=== PATIENT | male | born 1990 | race Two or more races ===

== ENCOUNTER 2021-08-18 18:34 | Emergency (ER) | payer SELFPAY ==
[2021-08-18] MEDS ORDERED: Sodium Chloride 0.9% 10 ML Syringe FLUSH PRN (18:55)
[2021-08-18] MEDS ORDERED: Sodium Chloride 0.9% 2.5 ML Syringe FLUSH PRN (18:55)
[2021-08-18 20:00] LABS: BLOOD UREA NITROGEN,BUN 6 mg/dL (7.0-18.0); CARBON DIOXIDE,CO2 25.3 mmol/L (21.0-32.0); CHLORIDE,CL 98 mmol/L (98-107); GLUCOSE RANDOM 123 mg/dL (74-106); LIPASE 191 U/L (73-393); POTASSIUM,K 3.3 mmol/L (3.5-5.1); SODIUM,NA 134 mmol/L (136-148)
[2021-08-18 20:37] LABS: BILIRUBIN INDIRECT 2.8
== END 2021-08-18 22:38 | disposition home or self-care (01) ==
LOC: MW.ED 18:34
DX: K72.90 Hepatic failure, unspecified without coma (principal); R10.11 Right upper quadrant pain
CPT/HCPCS: 36415; 76705; 76705-26; 80053; 80074; 81003; 82247; 82248; 83690; 83735; 85025; 85610; 85730; 99284; 99284-25

== ENCOUNTER 2022-10-29 19:27 | Inpatient (IN) | payer SELFPAY ==
[2022-10-29] MEDS ORDERED: Sodium Chloride 0.9% 1,000 ML IV ONE ×3 (19:28→21:07)
[2022-10-29] MEDS ORDERED: LORazepam 2 MG/ML SDV IVPUSH ONE (19:31)
[2022-10-29 19:41] LABS: BASOPHILS PERCENT AUTO 0.2 % (0.0-1.5); HEMATOCRIT 30.1 % (38.0-50.0); HEMOGLOBIN 10.3 g/dL (13.0-17.0); LYMPHOCYTES PERCENT AUTO 15.8 % (16.0-40.0); MEAN CORPUSCULAR HGB CONC 34.2 g/dL (31.0-37.0); MEAN CORPUSCULAR VOLUME 93.5 fL (80.0-98.0); MONOCYTES ABSOLUTE AUTO 0.4 K/uL (0.0-0.8); MONOCYTES PERCENT AUTO 6.7 % (0.0-15.0); NEUTROPHILS ABSOLUTE AUTO 5.1 K/uL (1.4-5.7); NEUTROPHILS PERCENT AUTO 77.3 % (48.0-80.0); NRBC ABSOLUTE 0 K/uL; RED BLOOD CELL COUNT 3.22 M/uL (4.50-5.90); WHITE BLOOD CELL COUNT,WBC 6.59 K/uL (4.0-11.0)
[2022-10-29 19:56] LABS: INR 1.59 (0.86-1.11); PTT,PARTIAL THROMBOPLSTIN TIME 28.5 SEC (23.9-30.7)
[2022-10-29 20:19] LABS: A/G RATIO 0.8 (0.9-1.6); ALANINE AMINOTRANSFERASE,ALT 225 IU/L (14-63); ALBUMIN 2.4 g/dL (3.4-5.0); ALKALINE PHOSPHATASE 362 U/L (46-116); ASPARTATE AMNIOTRANSFERASE,AST 557 IU/L (15-37); BILIRUBIN TOTAL 10.5 mg/dL (0.2-1.0); BLOOD UREA NITROGEN,BUN 24 mg/dL (7.0-18.0); CARBON DIOXIDE,CO2 20.5 mmol/L (21.0-32.0); CHLORIDE,CL 92 mmol/L (98-107); CREATININE 1.6 mg/dL (0.8-1.3); EST CRCL DRUG DOSING (CG) 60.09 mL/min; GLUCOSE RANDOM 196 mg/dL (74-106); LIPASE 24 U/L (73-393); MAGNESIUM 1.5 mg/dL (1.8-2.4); POTASSIUM,K 3.6 mmol/L (3.5-5.1); PROTEIN TOTAL,TP 5.3 g/dL (6.4-8.2); SODIUM,NA 136 mmol/L (136-148)
[2022-10-29 20:21] LABS: ESTIMATED GFR 58 mL/min (>60); ETHANOL BLOOD MEDICAL < 3.0 mg/dL
[2022-10-29] MEDS ORDERED: Lactulose Soln 10 GM/15 ML 15 ML UD Cup PO ONE (20:24)
[2022-10-29] MEDS ORDERED: Magnesium Sulfate/Water 2 GM in Premix Bag 1 BAG IV ONE (20:25)
[2022-10-29] MEDS ORDERED: Thiamine 200 MG/2 ML MDV IVPUSH ONE (20:25)
[2022-10-29] MEDS ORDERED: Folic Acid 1 MG/0.2 ML UD Syringe IV STA (20:26)
[2022-10-29] MEDS ORDERED: Multivitamin Tab PO STA (20:26)
[2022-10-29] MEDS ORDERED: Ondansetron 4 MG/2 ML SDV IVPUSH ONE (20:36)
[2022-10-29 20:40] LABS: PLATELET COUNT,PLT 66 K/uL (150-400)
[2022-10-29 20:47] LABS: LACTIC ACID 12.8 mmol/L (0.4-2.0)
[2022-10-29 20:53] LABS: APPEARANCE,URINE CLEAR; GLUCOSE,URINE NEGATIVE (NEGATIVE); KETONES,URINE 15 mg/dL (NEGATIVE); LEUKOCYTE ESTERASE,URINE NEGATIVE (NEGATIVE); NITRITE,URINE NEGATIVE (NEGATIVE); OCCULT BLOOD,URINE NEGATIVE (NEGATIVE); PROTEIN,URINE TRACE mg/dL (NEGATIVE); UROBILINOGEN,URINE 0.2 EU/dL (<2.0)
[2022-10-29 21:02] LABS: BILIRUBIN,URINE MODERATE (NEGATIVE); COLOR,URINE AMBER
[2022-10-29 21:12] LABS: AMPHETAMINES SCREEN, URINE NEGATIVE (CUTOFF=500); BARBITURATE SCREEN,URINE NEGATIVE (CUTOFF=200); BENZODIAZEPINES SCREEN,URINE NEGATIVE (CUTOFF=150); BUPRENORPHINE SCREEN,URINE NEGATIVE (CUTOFF=10); METHADONE SCREEN, URINE NEGATIVE (CUTOFF=200); METHAMPHETAMINES SCREEN, URINE NEGATIVE (CUTOFF=500); OXYCODONE SCREEN,URINE NEGATIVE (CUT0FF=100); PCP SCREEN,URINE NEGATIVE (CUTOFF=25); PROPOXYPHENE SCREEN,URINE NEGATIVE (CUTOFF=300); THC SCREEN,URINE 20 NG/ML NEGATIVE (CUTOFF=50)
[2022-10-29 21:13] LABS: BACTERIA,URINE FEW (NEGATIVE); EPITHELIAL CELLS,URINE RARE (NONE-FEW); RBC,URINE 0-1 (0-2/HPF); WBC,URINE 0-1 (0-5/HPF)
[2022-10-29] MEDS ORDERED: Iopamidol 755 MG/ML 500 ML Multipack Bottle IVPUSH STA (21:16)
[2022-10-29] MEDS ORDERED: Promethazine 25 MG Tab PO PRN (22:41)
[2022-10-29] MEDS ORDERED: LORazepam 1 MG Tab PO PRN (22:41)
[2022-10-29] MEDS ORDERED: Promethazine 25 MG/ML SDV IM PRN (22:41)
[2022-10-29] MEDS ORDERED: Acetaminophen 325 MG Tab PO PRN (22:41)
[2022-10-29] MEDS ORDERED: Ondansetron 4 MG Tab.DIS PO PRN (22:41)
[2022-10-29] MEDS ORDERED: Sodium Chloride 0.9% 1,000 ML IV SCH (22:45)
[2022-10-29] MEDS: NS + KCl 20mEq/L 1,000 ML IV SCH (23:59)
[2022-10-30 01:46] LABS: LACTIC ACID 5.7 mmol/L (0.4-2.0)
[2022-10-30 06:10] LABS: BASOPHILS PERCENT AUTO 0.5 % (0.0-1.5); EOSINOPHILS PERCENT AUTO 0.4 % (0.0-7.0); HEMATOCRIT 22.2 % (38.0-50.0); HEMOGLOBIN 7.6 g/dL (13.0-17.0); LYMPHOCYTES ABSOLUTE AUTO 1.7 K/uL (0.6-2.4); LYMPHOCYTES PERCENT AUTO 30.7 % (16.0-40.0); MEAN CORPUSCULAR HEMOGLOBIN 31.4 pg (27.0-32.0); MEAN CORPUSCULAR HGB CONC 34.2 g/dL (31.0-37.0); MEAN CORPUSCULAR VOLUME 91.7 fL (80.0-98.0); MONOCYTES ABSOLUTE AUTO 0.3 K/uL (0.0-0.8); MONOCYTES PERCENT AUTO 4.8 % (0.0-15.0); NEUTROPHILS ABSOLUTE AUTO 3.6 K/uL (1.4-5.7); NEUTROPHILS PERCENT AUTO 63.6 % (48.0-80.0); NRBC ABSOLUTE 0 K/uL; RED BLOOD CELL COUNT 2.42 M/uL (4.50-5.90); WHITE BLOOD CELL COUNT,WBC 5.63 K/uL (4.0-11.0)
[2022-10-30 06:15] LABS: INR 1.53 (0.86-1.11)
[2022-10-30 06:25] LABS: A/G RATIO 0.8 (0.9-1.6); BILIRUBIN TOTAL 9.3 mg/dL (0.2-1.0); CALCIUM 7.2 mg/dL (8.5-10.1); CARBON DIOXIDE,CO2 27.3 mmol/L (21.0-32.0); EST CRCL DRUG DOSING (CG) 98.23 mL/min; POTASSIUM,K 3.5 mmol/L (3.5-5.1); PROTEIN TOTAL,TP 4.5 g/dL (6.4-8.2)
[2022-10-30 07:15] LABS: PLATELET COUNT,PLT 64 K/uL (150-400)
[2022-10-30] MEDS: Pantoprazole 40 MG in Sodium Chloride 0.9% 10 ML IVPUSH SCH ×2 (08:14→20:20)
[2022-10-30] MEDS: Folic Acid 1 MG Tab PO SCH (08:14)
[2022-10-30] MEDS: Multivitamin Tab PO SCH (08:14)
[2022-10-30] MEDS ORDERED: Lactulose Soln 10 GM/15 ML 15 ML UD Cup PO SCH (09:00)
[2022-10-30] MEDS: NS + KCl 20mEq/L 1,000 ML IV SCH (12:50)
[2022-10-30 13:47] LABS: HEMATOCRIT 20.8 % (38.0-50.0); HEMOGLOBIN 7.1 g/dL (13.0-17.0)
[2022-10-30 16:12] LABS: HEMATOCRIT 20.4 % (38.0-50.0); HEMOGLOBIN 6.9 g/dL (13.0-17.0); MEAN CORPUSCULAR HEMOGLOBIN 31.2 pg (27.0-32.0); MEAN CORPUSCULAR HGB CONC 33.8 g/dL (31.0-37.0); MEAN CORPUSCULAR VOLUME 92.3 fL (80.0-98.0); MEAN PLATELET VOLUME 13.1 fL (7.40-12.00); NRBC PERCENT 0.5 /100WBC; RED BLOOD CELL COUNT 2.21 M/uL (4.50-5.90); WHITE BLOOD CELL COUNT,WBC 4.5 K/uL (4.0-11.0)
[2022-10-30 20:13] LABS: HEMATOCRIT 23.3 % (38.0-50.0); HEMOGLOBIN 7.9 g/dL (13.0-17.0); MEAN CORPUSCULAR HEMOGLOBIN 31.2 pg (27.0-32.0); MEAN CORPUSCULAR HGB CONC 33.9 g/dL (31.0-37.0); MEAN CORPUSCULAR VOLUME 92.1 fL (80.0-98.0); PLATELET COUNT,PLT 42 K/uL (150-400); RED BLOOD CELL COUNT 2.53 M/uL (4.50-5.90); WHITE BLOOD CELL COUNT,WBC 4.68 K/uL (4.0-11.0)
[2022-10-30 20:24] LABS: BASOPHILS PERCENT MAN 1 % (0.0-1.5); EOSINOPHILS PERCENT MAN 1 % (0.0-7.0); LYMPHOCYTES ABSOLUTE MAN 1.5 (0.6-2.4); LYMPHOCYTES PERCENT MAN 33 % (16.0-40.0); MONOCYTES ABSOLUTE MAN 0.1 (0.0-0.8); MONOCYTES PERCENT MAN 3 % (0.0-15.0); SEG NEUTROPHILS ABSOLUTE MAN 2.9 (1.4-5.7); SEG NEUTROPHILS PERCENT MAN 62 % (48.0-80.0)
[2022-10-30 20:25] LABS: INR 1.44 (0.86-1.11)
[2022-10-30] MEDS ORDERED: Thiamine 100 MG Tab PO SCH (21:00)
[2022-10-31 01:12] LABS: HEMOGLOBIN 7.9 g/dL (13.0-17.0); MEAN CORPUSCULAR HEMOGLOBIN 31.6 pg (27.0-32.0); MEAN CORPUSCULAR HGB CONC 34.3 g/dL (31.0-37.0); PLATELET COUNT,PLT 41 K/uL (150-400); WHITE BLOOD CELL COUNT,WBC 4.46 K/uL (4.0-11.0)
[2022-10-31 01:15] LABS: BAND ABSOLUTE MAN 1.9; SEG NEUTROPHILS ABSOLUTE MAN 2.4 (1.4-5.7); SEG NEUTROPHILS PERCENT MAN 53 % (48.0-80.0)
[2022-10-31 01:16] LABS: BASOPHILS PERCENT MAN 1 % (0.0-1.5); EOSINOPHILS PERCENT MAN 1 % (0.0-7.0); LYMPHOCYTES ABSOLUTE MAN 1.8 (0.6-2.4); LYMPHOCYTES PERCENT MAN 41 % (16.0-40.0); MONOCYTES ABSOLUTE MAN 0.2 (0.0-0.8); MONOCYTES PERCENT MAN 4 % (0.0-15.0)
[2022-10-31 01:17] LABS: PLATELET COUNT ESTIMATE DECREASED
[2022-10-31] MEDS: NS + KCl 20mEq/L 1,000 ML IV SCH (01:45)
[2022-10-31 06:19] LABS: INR 1.33 (0.86-1.11)
[2022-10-31 06:20] LABS: HEMATOCRIT 24.8 % (38.0-50.0); HEMOGLOBIN 8.5 g/dL (13.0-17.0); MEAN CORPUSCULAR HEMOGLOBIN 31.4 pg (27.0-32.0); MEAN CORPUSCULAR HGB CONC 34.3 g/dL (31.0-37.0); MEAN CORPUSCULAR VOLUME 91.5 fL (80.0-98.0); PLATELET COUNT,PLT 46 K/uL (150-400); RED BLOOD CELL COUNT 2.71 M/uL (4.50-5.90); WHITE BLOOD CELL COUNT,WBC 4.66 K/uL (4.0-11.0)
[2022-10-31 06:30] LABS: ALBUMIN 2.1 g/dL (3.4-5.0); BILIRUBIN TOTAL 12.1 mg/dL (0.2-1.0); CALCIUM 7.8 mg/dL (8.5-10.1); CARBON DIOXIDE,CO2 27.8 mmol/L (21.0-32.0); CREATININE 0.8 mg/dL (0.8-1.3); EST CRCL DRUG DOSING (CG) 122.79 mL/min; POTASSIUM,K 3.8 mmol/L (3.5-5.1); PROTEIN TOTAL,TP 4.9 g/dL (6.4-8.2)
[2022-10-31 06:31] LABS: A/G RATIO 0.8 (0.9-1.6)
[2022-10-31 07:07] LABS: EOSINOPHILS PERCENT MAN 1 % (0.0-7.0); MONOCYTES ABSOLUTE MAN 0.2 (0.0-0.8); MONOCYTES PERCENT MAN 5 % (0.0-15.0); SEG NEUTROPHILS ABSOLUTE MAN 2.1 (1.4-5.7); SEG NEUTROPHILS PERCENT MAN 45 % (48.0-80.0)
[2022-10-31 07:08] LABS: BAND ABSOLUTE MAN 2.2; LYMPHOCYTES ABSOLUTE MAN 2.3 (0.6-2.4); LYMPHOCYTES PERCENT MAN 49 % (16.0-40.0)
[2022-10-31] MEDS: Pantoprazole 40 MG in Sodium Chloride 0.9% 10 ML IVPUSH SCH (08:23)
[2022-10-31] MEDS: Multivitamin Tab PO SCH (08:32)
[2022-10-31] MEDS: Folic Acid 1 MG Tab PO SCH (08:32)
[2022-10-31 12:11] LABS: BASOPHILS ABSOLUTE AUTO 0.1 K/uL (0.0-0.1); BASOPHILS PERCENT AUTO 2.1 % (0.0-1.5); EOSINOPHILS ABSOLUTE AUTO 0.1 K/uL (0.0-0.7); EOSINOPHILS PERCENT AUTO 1.4 % (0.0-7.0); HEMATOCRIT 26.5 % (38.0-50.0); LYMPHOCYTES ABSOLUTE AUTO 1.6 K/uL (0.6-2.4); LYMPHOCYTES PERCENT AUTO 37.3 % (16.0-40.0); MEAN CORPUSCULAR VOLUME 91.4 fL (80.0-98.0); MONOCYTES ABSOLUTE AUTO 0.3 K/uL (0.0-0.8); MONOCYTES PERCENT AUTO 6.1 % (0.0-15.0); NEUTROPHILS ABSOLUTE AUTO 2.3 K/uL (1.4-5.7); NEUTROPHILS PERCENT AUTO 53.1 % (48.0-80.0); NRBC ABSOLUTE 0 K/uL; NRBC PERCENT 0.6 /100WBC; PLATELET COUNT,PLT 51 K/uL (150-400); WHITE BLOOD CELL COUNT,WBC 4.24 K/uL (4.0-11.0)
== END 2022-10-31 13:30 | disposition home or self-care (01) | DRG 433 ==
LOC: MW.ED 19:27 → MW.ICU 22:01
PROVIDERS: ADMIT Internal Medicine; ATTEND Internal Medicine
DX: K70.10 Alcoholic hepatitis without ascites (principal); E87.20 Acidosis, unspecified; F10.239 Alcohol dependence with withdrawal, unspecified; K92.0 Hematemesis; N17.9 Acute kidney failure, unspecified; K76.82 Hepatic encephalopathy; E83.42 Hypomagnesemia; E86.0 Dehydration; D69.59 Other secondary thrombocytopenia; Z79.899 Other long term (current) drug therapy
CPT/HCPCS: 36415; 36430; 70450; 70450-26; 72125; 72125-26; 74177; 74177-26; 80053; 80305-QW; 80307; 81001; 82140; 83605; 83690; 83735; 84443; 85007; 85014; 85018; 85025; 85027; 85610; 85730; 86706; 86803; 86850; 86900; 86901; 86920; 87040; 87340; 93005; 96360; 96361; 96365; 96375; 99285-25; A9270-GY; C9113; J2060; J2405; J3411; J3475; J3480; J3490; J7030; P9016; Q9967